=== PATIENT | female | born 1985 | race Caucasian/White ===

== ENCOUNTER 2022-01-05 03:38 | Emergency (ER) | payer OTHER ==
[2022-01-05 04:17] LABS: BASOPHIL 0.5 % (0-2); EOSINOPHIL 0.9 % (0-5); HCT 40.2 % (37.0-47.0); HGB 13.4 g/dl (12.5-16.0); LYMPHOCYTE 32.7 % (15-48); MCH 28.8 pg (25.0-31.0); MCHC 33.3 g/dL (32.0-36.0); MCV 86.3 fL (78.0-100.0); MONOCYTE 6.5 % (0-12); MPV 9.7 fL (6.0-9.5); NEUTROPHIL 59.1 % (41-80); NRBC 0; PLT 336 K/uL (150-400); RBC 4.66 M/uL (4.20-5.40); RDW 13.5 % (11.5-14.0); WBC 10.3 K/uL (4.0-10.5)
[2022-01-05 04:53] LABS: CORONAVIRUS 2019 SARS-COV-2 NEGATIVE (NEGATIVE); INFLUENZA A NAA NEGATIVE (NEGATIVE)
[2022-01-05 04:56] LABS: ACETAMINOPHEN (TYLENOL) < 2.0 ug/mL (10.0-30.0); ALBUMIN 3.6 g/dL (3.4-5.0); ALKALINE PHOSHATASE 55 U/L (46-116); ALT 32 U/L (14-59); AST 18 U/L (15-37); BILIRUBIN - TOTAL 0.6 mg/dL (0.2-1.0); BUN 15 mg/dL (7-18); BUN/CREAT RATIO (CALC) 18.3 RATIO; CHLORIDE 107 mmol/L (98-107); CO2 (BICARBONATE) 25 mmol/L (21-32); CREATININE 0.82 mg/dL (0.51-0.95); GLOBULIN (CALCULATION) 2.8 g/dL; GLUCOSE 90 mg/dL (74-106); TOTAL PROTEIN 6.4 g/dL (6.4-8.2)
== END 2022-01-05 11:03 | disposition left against medical advice (07) ==
LOC: FER 03:38
PROVIDERS: Emergency Medicine
DX: R45.851 Suicidal ideations (principal); F32.A Depression, unspecified; Z20.822 Contact with and (suspected) exposure to COVID-19; Z53.29 Procedure and treatment not carried out because of patient's decision for other reasons
CPT/HCPCS: 36415; 80053; 84703; 85025; 93005; G0480; U0002